=== PATIENT | male | born 1950 | race Caucasian/White ===

== ENCOUNTER → 2018-06-26 | Outpatient (CLI) | payer OTHER ==
--- NOTE | 2018-06-27 15:54 | CT ---
Procedure: CT LUNG SCREENING Exam Date: 06/26/2018. Ordering Provider: JESSE HELLER Clinical Indication: NICOTINE DEPENDENCE. 50 pack years. This patient meets eligibility criteria for low-dose CT lung cancer screening. Comparison: None. Technique: Using a multislice scanner, sequential helical axial imaging was obtained in the thorax, 2.5 mm thickness, 2.5 mm separation, from the level of the thoracic inlet through the lung bases without IV contrast. A low dose protocol was utilized: CTDI: 1.77 mGy. 120. kVp. 45 mA. DLP 80.79 mGy centimeters. 2D sagittal and coronal reconstructed images, 6.0 mm thickness, were obtained. This exam was performed according to our departmental dose optimization program which includes use of automated exposure control, adjustment of the mA and/or kV according to patient size and/or use of iterative reconstruction technique. Nodule measurements under 10 mm are given as mean value of 3 axes diameters. FINDINGS: Lungs and large airways: 4 mm solid nodule versus focal pleural thickening lateral subpleural right apex axial lung sequence 2, image 32 and 33. Bilateral upper lobe pulmonary blebs decreasing in frequency more inferiorly. No definitively abnormal nodules, no masses, no focal infiltrates. Pleura and space: Thickening in the medial right base. Bilateral focal thickening. No bilateral effusion or pneumothorax. Mediastinum and estela: evaluation limited by low dose technique and lack of IV contrast. Surgical clips in the mediastinum. Calcifications in the mediastinum. Heart and great vessels: Pacing leads in the right atrium and right ventricle and superior vena cava. Coronary artery calcifications. Atherosclerotic calcifications in the aortic arch and descending thoracic aorta. Chest wall, lower neck, axillae: Evaluation also limited by same factors as described above. Negative. Upper abdomen: 1.5 x 1.9 cm fatty density (minus 8HU) mass in the right adrenal gland with calcification, consistent with an adenoma. Spleen and left adrenal gland unremarkable. Gallbladder partially visualized. Minimal dependent density in the gallbladder. Partial visualization of liver pancreas and stomach. No free fluid or free air in the peritoneal cavity. 2 cm cyst in the right kidney. Osseous structures: Evaluation limited by low dose MIP technique. Spondylosis at multiple levels of the thoracic spine with minimal ankylosis also seen in the cervical spine. Sternotomy wires. Pacemaker upper anterior left chest. IMPRESSION: 1. 4 mm solid nodule versus focal pleural thickening lateral right apex with no prior CT scans for comparison. Probably benign lesion. Mild emphysematous changes in the bilateral upper lobes. No definitively abnormal nodules masses or focal infiltrates. [facility] Best Practice guidelines recommend 6 month follow-up according to lung RADS category system. Please see below for Lung RADS category and FOLLOW-UP.* 2. Mass in the right adrenal gland with predominantly fatty density and calcification consistent with a adrenal adenoma. No further imaging is recommended. *Lung RADS category Category 3 - Probably benign (1-2% malignancy probability), short term follow-up suggested. Nodules: Solid nodule(s) 6mm to less than 8mm at baseline, or new 4mm to under 6mm solid nodule. Part solid nodule total diameter 6mm to less than 8mm with solid component less than 6mm, or new less than 6mm total diameter nodule] [ground glass nodule(s) 20mm or greater. Follow-up: Please return for a Low Dose Chest CT in 6 months for re-evaluation. Electronically signed by: Jatin Christopher MD 06/27/2018 3:53 PM [facility]
== END ==
LOC: CT 09:09
PROVIDERS: ATTEND Emergency Medicine
DX: F17.210 Nicotine dependence, cigarettes, uncomplicated (principal); E27.8 Other specified disorders of adrenal gland

== ENCOUNTER → 2019-04-20 | Outpatient (CLI) | payer OTHER ==
--- NOTE | 2019-04-23 09:41 | CT ---
Procedure: CT CHEST WITHOUT CONTRAST, LOW-DOSE. Exam Date: 04/20/2019 Ordering Provider: JESSE HELLER Clinical Indication: PERSONAL HISTORY OF TOBACCO USE . Current cigarette smoker. 25 pack years. Comparison: Low-dose lung CT screening examination 26 June 2018 and follow-up low-dose CT scan chest without contrast 08 January 2019. Technique: Using a multislice scanner, sequential helical axial imaging was obtained in the thorax, 2.5 mm thickness, 2.5 mm separation, from the level of the thoracic inlet through the lung bases without IV contrast. A low dose protocol was utilized for BMI less than 30: BMI: 26.3. CTDI: 1.76 mGy. 120. kVp. 45 mA. DLP: 71.44 mGy-centimeters. 2D sagittal and coronal reconstructed images, 6.0 mm thickness, were obtained. This exam was performed according to our departmental dose optimization program which includes use of automated exposure control, adjustment of the mA and/or kV according to patient size and/or use of iterative reconstruction technique. Nodule measurements under 10 mm are given as mean value of 3 axes diameters. FINDINGS: Lungs and large airways: Bilateral prominent blebs in a centrilobular distribution. Stable focal pleural thickening or subpleural nodules in the right apex as well as the left apex. Approximately 4 mm diameter. Stable scarring in the lateral recess on the right lower lobe abutting the lateral pleura of the right hemidiaphragm and chest wall. Bibasilar pleural-parenchymal scarring or right than left stable. Occasional bulla in the upper lobes. Pleural parenchymal scarring anterior left lower lobe and inferior lingula. Thickening of portions of the bilateral major fissures. No new nodules and no masses. No focal infiltrates. Pleura and space: Multifocal thickening or nipple lobes and lower lobes. Also scarring and bronchial thickening. No effusion or pneumothorax. Mediastinum and estela: evaluation limited by low dose technique and lack of IV contrast. Surgical clips in the mediastinum. No enlarged lymph nodes or dominant solid masses. Heart and great vessels: Pacing leads in the right atrium and right ventricle via left subclavian and superior vena cava. Atherosclerotic calcifications in the great vessels, and aortic arch. Chest wall, lower neck, axillae: Evaluation also limited by same factors as described above. Pacemaker power pack. Anterior left chest. Bilateral axillary lymph nodes. Heterogeneous thyroid gland. Upper abdomen: Evaluation limited by low-dose technique. No free fluid or free air in the included peritoneal. Gallbladder visualized. Included organs are unremarkable except for 2.5 cm cyst partially visualized posterior right kidney. Also partially visualized previously. Abdominal aorta atherosclerotic calcifications. Possible calcification right adrenal gland is stable. Possible cyst by density in the lateral left kidney, approximately 2 cm diameter, stable since the prior study.. Osseous structures: Evaluation limited by low dose MIP technique. Scoliosis and spondylosis thoracic spine. Sternotomy wires. IMPRESSION: 1. Stable right apical subpleural nodule versus focal pleural thickening ovary 9 month interval. Emphysematous changes bilaterally. Bilateral pleural and parenchymal scarring.. No new nodules or masses. No new focal infiltrates. [facility] Best Practice Recommendations: please see below for Lung RADS category and FOLLOW-UP.* *Lung RADS category CATEGORY 2- Nodules with a very low likelihood (less than 1%) of becoming a clinically active cancer due to size or lack of growth. Nodules: Perifissural nodule(s) < 10 mm. (526mm3). Solid or part solid nodule(s) less than 6mm (113.1 mm3), new solid nodule less than 4mm (33.5 mm3). Ground glass nodule(s) less than 30mm (12156.2 mm3) or unchanged or slow growing ground glass nodule 30mm or greater. Cat 3 or 4 nodule unchanged for 3 or more months. FOLLOW-UP: Return for annual screening with a Low Dose Chest CT in 12 months for re-evaluation. Electronically signed by: Jatin Christopher MD 04/23/2019 9:39 AM [employer]
== END ==
LOC: CT 08:30
PROVIDERS: ATTEND Emergency Medicine
DX: R06.09 Other forms of dyspnea (principal); J43.9 Emphysema, unspecified; R91.8 Other nonspecific abnormal finding of lung field